=== PATIENT | male | born 1990 | race Hispanic/Latino ===

== ENCOUNTER 2020-09-28 17:22 | Emergency (ER) | payer OTHER, SELFPAY ==
[2020-09-28] MEDS ORDERED: Diazepam 10 MG/2 ML SYRINGE ONE (18:41)
[2020-09-28] MEDS ORDERED: Ketorolac Tromethamine 30 MG/ML VIAL ONE (18:41)
== END 2020-09-28 19:22 | disposition home or self-care (01) ==
LOC: MADERS 17:22
DX: S33.5XXA Sprain of ligaments of lumbar spine, initial encounter (principal); F17.210 Nicotine dependence, cigarettes, uncomplicated; X50.1XXA Overexertion from prolonged static or awkward postures, initial encounter; Y92.69 Other specified industrial and construction area as the place of occurrence of the external cause
CPT/HCPCS: 72131; 96372; J1885; J3360